=== PATIENT | female | born 1990 | race Caucasian/White ===

== ENCOUNTER 2023-09-08 16:21 | Emergency (ER) | payer OTHER ==
[2023-09-08 16:35] VITALS: BP 156/99; PULSE 68; RESP 18; TEMP 98.6; BMI 29.7
[2023-09-08] MEDS ORDERED: IBUPROFEN 600 MG TABLET (FP) PO ONE ×2 (17:48→18:53)
== END 2023-09-08 20:27 | disposition home or self-care (01) ==
LOC: JER 16:21 → JERFT 16:21 → JER 20:27
DX: T78.40XA Allergy, unspecified, initial encounter (principal); R07.9 Chest pain, unspecified; R51.9 Headache, unspecified; R21 Rash and other nonspecific skin eruption; L29.9 Pruritus, unspecified; L53.9 Erythematous condition, unspecified
CPT/HCPCS: 36415; 71046-TC-FY; 84484; 93005; 93010; 99285-25

== ENCOUNTER 2024-06-17 14:15 | Emergency (ER) | payer OTHER ==
[2024-06-17 14:20] VITALS: BP 144/90; PULSE 93; RESP 20; TEMP 98.1; BMI 29.0
[2024-06-17] MEDS ORDERED: ACETAMINOPHEN 500 MG TABLET (FP) ONE (14:55)
[2024-06-17] MEDS: ACETAMINOPHEN 500 MG TABLET (FP) PO ONE (14:56)
[2024-06-17 15:29] LABS: BASO % 0.3 % (0-2.0); EOS % 0.3 % (0-4.5); HEMATOCRIT 40.2 % (32.4-45.2); HEMOGLOBIN 12.9 GM/dL (10.7-15.3); LYMPH % 23.8 % (8-40); MCH 24.2 pg (25.7-33.7); MCHC 32.2 g/dl (32.0-36.0); MEAN CELL VOLUME 75.4 fl (80-96); MEAN PLT VOLUME 7.1 fl (7.5-11.1); MONO % 5.8 % (3.8-10.2); NEUT % 69.8 % (42.8-82.8); PLATELET COUNT 365 10^3/uL (134-434); RBC 5.34 M/mm3 (3.60-5.2); RDW 14.8 % (11.6-15.6); WHITE BLOOD COUNT 11.7 K/mm3 (4.0-10.0)
[2024-06-17 15:31] LABS: PH,URINE 6.5 (5.0-8.0); URINE APPEARANCE CLEAR; URINE BILIRUBIN NEGATIVE (NEGATIVE); URINE COLOR YELLOW; URINE GLUCOSE (UA) NEGATIVE (NEGATIVE); URINE KETONE TRACE (NEGATIVE); URINE LEUK ESTERASE NEGATIVE (NEGATIVE); URINE NITRITE NEGATIVE (NEGATIVE); URINE PROTEIN NEGATIVE (NEGATIVE); URINE UROBILINOGEN 0.2 mg/dL (0.2-1.0)
[2024-06-17 15:50] LABS: ALBUMIN 3.6 g/dl (3.4-5.0); CALCIUM 8.7 mg/dL (8.5-10.1)
[2024-06-17 15:51] LABS: BLOOD UREA NITROGEN 18.8 mg/dL (7-18)
[2024-06-17 15:54] LABS: CREATININE 0.9 mg/dL (0.55-1.3)
[2024-06-17 15:55] LABS: BILIRUBIN,TOTAL 0.3 mg/dL (0.2-1)
== END 2024-06-17 17:12 | disposition home or self-care (01) ==
LOC: JER 14:15
DX: O20.9 Hemorrhage in early pregnancy, unspecified (principal); Z3A.01 Less than 8 weeks gestation of pregnancy
CPT/HCPCS: 36415; 76817-TC; 80053; 81003; 84702; 85025; 87086; 99284-25

== ENCOUNTER 2024-06-19 12:39 | Emergency (ER) | payer OTHER ==
[2024-06-19 12:52] VITALS: BP 122/84; PULSE 87; RESP 18; TEMP 98; BMI 31.9
== END 2024-06-19 15:03 | disposition home or self-care (01) ==
LOC: JERFT 12:39
DX: Z32.01 Encounter for pregnancy test, result positive (principal)
CPT/HCPCS: 36415; 84702; 86850; 86900; 86901; 99283-25

== ENCOUNTER 2025-03-12 15:35 | Emergency (ER) | payer OTHER ==
[2025-03-12 15:56] VITALS: BP 142/95; PULSE 92; RESP 16; TEMP 98.1; BMI 31.0
[2025-03-12 18:01] LABS: ABSOLUTE IMMATURE GRANULOCYTES 0.05 x10^3/uL (0.0-0.031); BASOPHILS # 0.02 x10^3/uL (0.01-0.08); EOSINOPHIL % 0.1 % (0.7-5.8); EOSINOPHILS # 0.01 x10^3/uL (0.04-0.36); MCHC 31.4 g/dl (32.2-35.5); MEAN CELL VOLUME 78.1 fl (79.4-94.8); MEAN PLT VOLUME 9.2 fl (9.4-12.3); MONOCYTE # 0.55 x10^3/uL (0.24-0.86); MONOCYTE % 4.3 % (4.7-12.5); RDW 13.8 % (12.1-16.8)
[2025-03-12] MEDS ORDERED: METOCLOPRAMIDE HCL INJECTION 10 MG/2 ML VIAL ONE (18:10)
[2025-03-12] MEDS ORDERED: ACETAMINOPHEN INJECTION 100 ML ONE (18:10)
[2025-03-12] MEDS: METOCLOPRAMIDE HCL INJECTION 10 MG/2 ML VIAL IVPB ONE (18:19)
[2025-03-12] MEDS: SODIUM CHLORIDE 0.9% 500 ML INFUS.BAG IV ONE (18:19)
[2025-03-12] MEDS: ACETAMINOPHEN 1000 MG/100 ML BAG IVPB ONE (18:19)
[2025-03-12] MEDS ORDERED: METHOCARBAMOL 500 MG TABLET ONE (18:21)
[2025-03-12 18:24] LABS: CO2 23.0 mmol/L (21-32); GLUCOSE,RANDOM 86.0 mg/dL (74-106)
[2025-03-12 18:27] LABS: CREATININE 0.6 mg/dL (0.55-1.3); SGOT/AST 11.0 U/L (15-37); SGPT/ALT 20.0 U/L (13-61)
[2025-03-12 18:29] LABS: TOT PROT 7.4 g/dl (6.4-8.2)
[2025-03-12 18:30] LABS: ALK PHOS 102.0 U/L (45-117)
[2025-03-12] MEDS: METHOCARBAMOL 750 MG TABLET PO ONE (18:38)
== END 2025-03-12 21:34 | disposition home or self-care (01) ==
LOC: JER 15:35
PROC: 3E033NZ Introduction of Analgesics, Hypnotics, Sedatives into Peripheral Vein, Percutaneous Approach (ICD-10-PCS; principal; 2025-03-12)
PROC: 3E033GC Introduction of Other Therapeutic Substance into Peripheral Vein, Percutaneous Approach (ICD-10-PCS; 2025-03-12)
DX: R51.9 Headache, unspecified (principal); R07.2 Precordial pain; H53.8 Other visual disturbances; H53.149 Visual discomfort, unspecified; R11.2 Nausea with vomiting, unspecified; F43.9 Reaction to severe stress, unspecified; Z33.1 Pregnant state, incidental
CPT/HCPCS: 36415; 70450-TC; 71046-TC-FY; 80053; 84484; 84703; 85025; 93005; 93010; 99285-25